=== PATIENT | female | born 1960 | race Asian ===

== ENCOUNTER 2016-07-12 01:21 | Emergency (ER) | payer MEDICAID ==
[~2016-07-12] VITALS: Ht 167.6 cm; Wt 84.4 kg
[2016-07-12 01:41] VITALS: BP_SYST 146
[2016-07-12 01:52] LABS: BILIRUBIN,URINE NEGATIVE (NEGATIVE); CLARITY/URINE CLEAR (CLEAR); COLOR,URINE YELLOW (YELLOW); GLUCOSE,URINE NEGATIVE (NEGATIVE); KETONES,URINE NEGATIVE (NEGATIVE); LEUKOCYTE ESTERASE ,URINE NEGATIVE (NEGATIVE); NITRITE, URINE NEGATIVE (NEGATIVE); PROTEIN URINE NEGATIVE (NEGATIVE); UROBILINOGEN,URINE 0.2 (0.2-1.0)
[2016-07-12 01:56] LABS: BLOOD, URINE TRACE (NEGATIVE)
[2016-07-12 01:58] LABS: BACTERIA,URINE FEW /HPF (None Seen); MUCUS,URINE None Seen /LPF (None Seen); RBC,URINE 0-3 /HPF (0-3); WBC,URINE 0-3 /HPF (0-3)
[2016-07-12] MEDS ORDERED: MAG HYDROX/AL HYDROX/SIMETH 30 ML, BELLADONNA ALKALOIDS/PHENOBARB 10 ML, LIDOCAINE VISC... PO ONE ×3 (02:15)
[2016-07-12 02:40] VITALS: BP_SYST 135
== END 2016-07-12 02:40 | disposition home or self-care (01) ==
LOC: SED 01:21
DX: R10.13 Epigastric pain (principal); R11.2 Nausea with vomiting, unspecified; E11.9 Type 2 diabetes mellitus without complications; I10 Essential (primary) hypertension; Z90.49 Acquired absence of other specified parts of digestive tract; Z98.890 Other specified postprocedural states; Z90.710 Acquired absence of both cervix and uterus; Z88.1 Allergy status to other antibiotic agents
CPT/HCPCS: 81000; 82962; 99283; J2001

== ENCOUNTER 2021-07-27 22:26 | Emergency (ER) | payer MEDICAID, OTHER ==
[~2021-07-27] VITALS: Ht 167.6 cm; Wt 86.2 kg
[2021-07-27 23:16] VITALS: BP_SYST 140
--- NOTE | 2021-07-27 23:16 | NUR ---
PAtient came in to the emergency room complains of pain to her right ribs s/p hit the corner of the washing machine while trying to reach the clothes, happened at 0900 hrs. Patient reports 6 to 7/ 10 PS worse on movement. Patient breathing easy, unlabored. Patient denies any other remarkable symptoms. Patient awaiting ER MD to [place].
--- NOTE | 2021-07-27 23:24 | NUR ---
ER in triage examining patient.
[2021-07-28] MEDS ORDERED: IBUPROFEN 800 MG TABLET PO ONE
[2021-07-28] MEDS ORDERED: IBUP-1971 PO (01:33)
[2021-07-28 02:00] VITALS: BP_SYST 147
--- NOTE | 2021-07-28 02:00 | NUR ---
Patient given written and verbal discharge instructions and verbalizes understanding. ER MD discussed with patient the results and treatment provided. Patient in stable condition. Rx of Ibuprofen 800 mg given. Patient educated on pain management and to follow up with PMD. Pain Scale 2/10. Opportunity for questions provided and answered.
== END 2021-07-28 02:00 | disposition home or self-care (01) ==
LOC: SED 22:26
DX: R07.89 Other chest pain (principal); I10 Essential (primary) hypertension; E11.9 Type 2 diabetes mellitus without complications; Z88.8 Allergy status to other drugs, medicaments and biological substances; Z79.899 Other long term (current) drug therapy
CPT/HCPCS: 71100; 99283

== ENCOUNTER 2022-12-01 23:46 | Emergency (ER) | payer OTHER ==
[~2022-12-01] VITALS: Ht 167.6 cm; Wt 84.4 kg
[2022-12-01 23:46] VITALS: BP_SYST 167; PULSE 88; RESP 19; TEMP 97.7; O2SAT 98
[~2022-12-01 23:46] MED LIST: IBUP-1971 PO
[2022-12-02] MEDS ORDERED: AMLO5TAB4 PO (00:08)
[2022-12-02] MEDS ORDERED: METF-518 PO (00:08)
[2022-12-02] MEDS ORDERED: LISI20TA30 PO (00:09)
[2022-12-02] MEDS ORDERED: INSU100V53 SUBCUT (00:09)
[2022-12-02 00:59] LABS: BASOPHILS % (AUTO) 0.2 % (0.0-2.0); EOSINOPHILS # (AUTO) 0.2 K/uL (0.0-0.4); EOSINOPHILS % (AUTO) 1.7 % (0.0-4.0); HEMATOCRIT 40.2 % (36-48); HEMOGLOBIN 12.9 g/dL (12.0-16.0); LYMPHOCYTES # (AUTO) 1.4 K/uL (1.0-5.5); LYMPHOCYTES % (AUTO) 15.9 % (20.5-51.5); MEAN CORPUSCULAR HEMOGLOBIN 26 pg (27-31); MEAN CORPUSCULAR HGB CONC 32 % (32-36); MEAN CORPUSCULAR VOLUME 82 fL (79.0-98.0); MONOCYTES # (AUTO) 0.4 K/uL (0.0-1.0); MONOCYTES % (AUTO) 4.3 % (1.7-9.3); NEUTROPHILS % (AUTO) 77.9 % (40.0-70.0); PLATELET COUNT (AUTO) 277 K/uL (130-430); RED BLOOD CELL COUNT(AUTO) 4.93 MIL/uL (4.2-6.2); RED CELL DISTRIBUTION WIDTH 13.9 % (9.0-15.0)
[2022-12-02 01:03] LABS: BILIRUBIN,URINE NEGATIVE (NEGATIVE); BLOOD, URINE NEGATIVE (NEGATIVE); CLARITY/URINE CLEAR (CLEAR); COLOR,URINE YELLOW (YELLOW); GLUCOSE,URINE NEGATIVE (NEGATIVE); KETONES,URINE NEGATIVE (NEGATIVE); LEUKOCYTE ESTERASE ,URINE TRACE (NEGATIVE); NITRITE, URINE NEGATIVE (NEGATIVE); PH,URINE 6.5 (5.0-8.0); PROTEIN URINE NEGATIVE (NEGATIVE); UROBILINOGEN,URINE 0.2 (0.2-1.0)
[2022-12-02 01:29] LABS: BACTERIA,URINE RARE /HPF (None Seen); RBC,URINE 0-3 /HPF (0-3)
[2022-12-02 01:34] LABS: ALANINE AMINOTRANSFERASE 13 U/L (12-78); ALBUMIN 3.7 g/dL (3.4-4.8); ANION GAP 5 (5-15); ASPARTATE AMINOTRANSFERASE 14 U/L (10-37); CALCIUM 9.3 mg/dL (8.4-11.0); CARBON DIOXIDE 31 mmol/L (23-29); CHLORIDE 102 mmol/L (98-107); GFR AFRICAN AMERICAN 93 mL/min (>90); GLUCOSE 182 mg/dL (74-106); POTASSIUM 4.2 mmol/L (3.5-5.1); SODIUM SERUM 138 mmol/L (136-145); TOTAL BILIRUBIN 0.4 mg/dL (0.0-1.0); UREA NITROGEN, BLOOD 17 mg/dL (8-21)
[2022-12-02 01:43] LABS: GFR NON AFRICAN-AMERICAN 77 mL/min (>90)
[2022-12-02 02:43] VITALS: BP_SYST 149; PULSE 70; RESP 16; TEMP 97.9; O2SAT 97
== END 2022-12-02 02:46 | disposition home or self-care (01) ==
LOC: SED 23:46
DX: R53.1 Weakness (principal); R06.02 Shortness of breath; E11.9 Type 2 diabetes mellitus without complications; I10 Essential (primary) hypertension; Z88.2 Allergy status to sulfonamides; Z79.899 Other long term (current) drug therapy
CPT/HCPCS: 36415; 71045; 80053; 81000; 83880; 84484; 85025; 93005; 99285

== ENCOUNTER 2023-10-18 22:47 | Emergency (ER) | payer OTHER ==
[~2023-10-18] VITALS: Ht 167.6 cm; Wt 79.4 kg
[~2023-10-18 22:47] MED LIST changes: +AMLO5TAB4 PO; +INSU100V53 SUBCUT; +LISI20TA30 PO; +METF-518 PO
[2023-10-18 22:50] VITALS: BP_SYST 168; PULSE 74; RESP 18; TEMP 97; O2SAT 98
[2023-10-19 00:30] VITALS: BP_SYST 128; PULSE 65; RESP 18; TEMP 98; O2SAT 100
[2023-10-19] MEDS ORDERED: ACET325T PO (01:05)
[2023-10-19] MEDS ORDERED: AUG875 PO (01:05)
[2023-10-19] MEDS ORDERED: ZIT250 PO (01:05)
[2023-10-19] MEDS ORDERED: GUAI5SYR PO (01:05)
== END 2023-10-19 01:20 | disposition home or self-care (01) ==
LOC: SED 22:47
DX: J18.1 Lobar pneumonia, unspecified organism (principal); R07.89 Other chest pain; E11.9 Type 2 diabetes mellitus without complications; I10 Essential (primary) hypertension; Z88.2 Allergy status to sulfonamides; Z88.8 Allergy status to other drugs, medicaments and biological substances; Z79.899 Other long term (current) drug therapy; Z79.2 Long term (current) use of antibiotics
CPT/HCPCS: 71045; 99283